=== PATIENT | male | born 2000 | race Caucasian/White ===

== ENCOUNTER → 2020-02-01 | Outpatient (REF) | payer OTHER ==
[~2020-02-01] MED LIST: AZIT-12 PO; CLIN150C14 PO; PRED20TA PO
[2020-02-01 17:12] LABS: C REACTIVE PROTEIN QUANTITATIV 4.43 MG/DL (0.00-0.30)
[2020-02-01 17:24] LABS: MONO SCRN NEGATIVE (NEGATIVE)
[2020-02-01 17:40] LABS: LYMPHOCYTES 9 % (16-44); MONOCYTES 4 % (0-5); NEUTROPHILS 87 % (28-66)
[2020-02-01 17:45] LABS: ANISOCYTOSIS 1+; HYPOCHROMASIA 1+
[2020-02-01 17:46] LABS: MICROCYTOSIS 4+
[2020-02-01 17:48] LABS: POIKILOCYTOSIS 1+
[2020-02-01 17:50] LABS: PLATELET ESTIMATE NORMAL (NORMAL)
== END ==
LOC: M LAB REF 16:46
PROVIDERS: ATTEND Nurse Practitioner Family
DX: R59.0 Localized enlarged lymph nodes (principal); D72.829 Elevated white blood cell count, unspecified; J02.9 Acute pharyngitis, unspecified

== ENCOUNTER 2020-02-02 16:33 | Emergency (ER) | payer BC, OTHER ==
[~2020-02-02] VITALS: Ht 182.9 cm; Wt 86.7 kg
[2020-02-02] MEDS ORDERED: PRED20TA PO (16:42)
[2020-02-02] MEDS ORDERED: CLIN150C14 PO (16:42)
[2020-02-02] MEDS ORDERED: AZIT-12 PO (16:42)
[2020-02-02] MEDS ORDERED: ISOVUE-370 76% 100ML VIAL (Q9967) As Ordered ONE (17:28)
[2020-02-02 17:33] LABS: BASO # 0.1 10^3/uL (0.0-0.2); BASO % 0.3 % (0.0-1.0); HEMATOCRIT 38.8 % (42.0-52.0); HEMOGLOBIN 11.7 g/dl (13.5-17.5); LYMPH # 1.6 10^3/uL (1.5-5.0); MEAN CORPUSCULAR HGB CONC 30.2 g/dl (32.0-36.5); MEAN CORPUSCULAR VOLUME 59.7 fl (80.0-96.0); MONO # 1.1 10^3/uL (0.0-0.8); MONO % 4.9 % (0.0-5.0); NEUTROPHILS # 19.4 10^3/uL (1.5-8.5); NEUTROPHILS % 87.1 % (36.0-66.0); PLATELET COUNT, AUTOMATED 366 10^3/uL (150-450); WHITE BLOOD COUNT 22.2 10^3/uL (4.0-10.0)
[2020-02-02 17:52] LABS: ERYTHROCYTE SEDIMENTATION RATE 15 mm/hr (0-15); MONO REFLEX EBV COMP NEGATIVE (NEGATIVE)
[2020-02-02 17:53] LABS: ALBUMIN 3.7 GM/DL (3.2-5.2); ALT/SGPT 15 U/L (12-78); BILIRUBIN,DIRECT 0.3 MG/DL (0.0-0.2); BILIRUBIN,TOTAL 1.2 MG/DL (0.2-1.0); TOTAL PROTEIN 8.4 GM/DL (6.4-8.2)
--- NOTE | 2020-02-02 18:06 | REPVR ---
PROCEDURE INFORMATION: Exam: CT Neck With Contrast Exam date and time: 02/02/2020 5:37 PM Age: 19 years old Clinical indication: Neck pain; Additional info: Left sided neck swelling/pain TECHNIQUE: Imaging protocol: Computed tomography images of the neck with intravenous contrast. Radiation optimization: All CT scans at this facility use at least one of these dose optimization techniques: automated exposure control; mA and/or kV adjustment per patient size (includes targeted exams where dose is matched to clinical indication); or iterative reconstruction. Contrast material: ISO 370; Contrast volume: 75 ml; Contrast route: IV; COMPARISON: No relevant prior studies available. FINDINGS: Sinuses: There is mild sinus mucosal disease, with no air-fluid level identified. Nasopharynx: Unremarkable. Oropharynx: There is inflammatory enlargement of the tonsillar pillars bilaterally, which may be slightly more prominent on the left. Hypopharynx: Unremarkable. Larynx: Unremarkable. Normal epiglottis. Retropharyngeal space: Unremarkable. Submandibular/Parotid glands: Normal. Glands are normal in size. Thyroid: Normal. No enlarged or calcified nodules. Lymph nodes: There are prominent, presumed reactive left cervical nodes, largest measuring approximately 2.6 cm in diameter. Trachea: Visualized trachea is unremarkable. Lungs: Unremarkable as visualized. Bones/joints: There is a reversal of the normal lordosis, which may be related to patient positioning, muscle spasm, or splinting. Soft tissues: There is enlargement and edematous appearance of the left sternocleidomastoid muscle, which appears hypervascular. There is edema involving the surrounding soft tissues of the left neck and. No soft tissue abscess is detected. IMPRESSION: 1. Inflammatory enlargement of the left sternocleidomastoid muscle, with surrounding soft tissue inflammation. No soft tissue abscess. 2. Reactive left cervical nodes. 3. Inflammatory enlargement of the tonsillar pillars bilaterally, perhaps slightly more prominent on the left. No peritonsillar abscess. Electronically signed by: Petra Weller On 02/02/2020 18:06:17 PM
[2020-02-02] MEDS ORDERED: CLINDAMYCIN 600 MG in IV 1 EA IV ONE (18:15)
[2020-02-02 19:05] VITALS: BP 146/84
[2020-02-05 00:06] LABS: EBV VIRAL CAPSID AG IgM <36.0 U/mL (0.0-35.9)
== END 2020-02-02 19:34 | disposition home or self-care (01) ==
LOC: M ED 16:33
DX: M79.18 Myalgia, other site (principal); R22.1 Localized swelling, mass and lump, neck; J35.1 Hypertrophy of tonsils; Z88.0 Allergy status to penicillin
CPT/HCPCS: 70491; 80047; 80076; 83605; 85025; 85652; 86140; 86308; 86664; 86665; 87040; 96365; 99284; Q9967

== ENCOUNTER 2020-02-03 11:13 | Inpatient (IN) | payer BC ==
[~2020-02-03] VITALS: Ht 185.4 cm; Wt 86.0 kg
[~2020-02-03 11:13] MED LIST changes: -CEFD1CAP8 PO
[2020-02-03] MEDS ORDERED: MOM 30ML SUSPENSION UDC PO PRN (11:30)
[2020-02-03 11:50] VITALS: BP 127/73
[2020-02-03 12:13] LABS: HEMATOCRIT 37.4 % (42.0-52.0); HEMOGLOBIN 11.3 g/dl (13.5-17.5); MEAN CORPUSCULAR HGB CONC 30.2 g/dl (32.0-36.5); MEAN CORPUSCULAR VOLUME 59.6 fl (80.0-96.0); PLATELET COUNT, AUTOMATED 320 10^3/uL (150-450); RED BLOOD COUNT 6.27 10^6/uL (4.30-6.10); WHITE BLOOD COUNT 18.1 10^3/uL (4.0-10.0)
[2020-02-03 12:37] LABS: ALBUMIN 3.5 GM/DL (3.2-5.2); ALT/SGPT 14 U/L (12-78); BILIRUBIN,TOTAL 1.3 MG/DL (0.2-1.0); BLOOD UREA NITROGEN 18 MG/DL (7-18); CALCIUM LEVEL 8.7 MG/DL (8.5-10.1); CARBON DIOXIDE LEVEL 31 MEQ/L (21-32); CHLORIDE LEVEL 104 MEQ/L (98-107); CREATININE FOR GFR 0.96 MG/DL (0.70-1.30); GLOMERULAR FILTRATION RATE > 60.0 (>60); GLUCOSE, FASTING 83 MG/DL (70-100); POTASSIUM SERUM 3.7 MEQ/L (3.5-5.1); SODIUM LEVEL 139 MEQ/L (136-145); TOTAL PROTEIN 7.7 GM/DL (6.4-8.2)
[2020-02-03 14:00] VITALS: BP 142/80
[2020-02-03] MEDS: ACETAMINOPHEN TAB 650MG DOSE (2X325MG) PO PRN ×3 (14:43→23:53)
[2020-02-03] MEDS ORDERED: CLINDAMYCIN 300 MG in IV 1 EA IV SCH ×4 (16:00)
[2020-02-03] MEDS: MEROPENEM INJ 1 GM in IV 1 EA IV SCH (17:15)
--- NOTE | 2020-02-03 17:55 | CR ---
DATE OF CONSULTATION: 02/03/2020 Asked to consult by hospitalist for evaluation of left neck abscess. HISTORY OF PRESENT ILLNESS: Irving is a pleasant 19-year-old gentleman, college student, who came back from [place] about 3 weeks ago, when he noted that he had a mild sore throat and some swelling. He did not seek any medical attention until about 5 days ago, when he noticed that his left side of the neck was much worse with swollen lymph node. He was taken to the urgent care by [facility] ([facility]), where he was treated with Zithromax and prednisone. He finished yesterday the course of Zithromax and was seen again yesterday in the emergency room, where he was given a dose of clindamycin. His white count was 22,000. He was discharged home on oral clindamycin. He received a total of three oral doses and 1 dose intravenous (IV) without any improvement. He was seen by ears, nose, and throat (ENT) today, who recommended his hospital admission. He had an incision and drainage (I and D) attempt by Dr. Brown, who was only able to get very few drops of blood. There was no purulence. Dr. Brown felt it was a phlegmon still, but he recommended hospitalization. PAST MEDICAL HISTORY: Not significant. He has no history of methicillin-resistant Staphylococcus aureus (MRSA) infections or asthma. No childhood illnesses. History of one episode of pneumonia as a child. He also has a history of Gilbert's syndrome and thalassemia minor. ALLERGIES: AMOXICILLIN with a faint rash as a child. LABORATORY DATA: White count today was 18.1, hemoglobin 11.3, hematocrit 37.4, MCV of 60, platelet 320, ESR 15. Sodium 139, potassium 3.7, chloride 104, bicarbonate 31, BUN 18, creatinine 0.96, glucose 83, lactic acid 1.7, calcium 8.7. Bilirubin 1.3, AST 10, ALT 14, alkaline phosphatase 94, total protein 7.7, albumin 3.5. CRP on January 31 was 4.43, on February 01 was 6. Serology: Mary-Mari virus (EBV), IgM, IgG, and nuclear antigen are pending. Mononucleosis screen was negative on January 31 and February 01. The patient does not have a history of mononucleosis as a child. Blood culture on February 01, two sets, were ordered and are negative so far. CT neck showed mild sinus mucosa disease with no air-fluid level. Unremarkable nasopharynx. Inflammatory enlargement tonsillar pillars bilaterally, which may be slightly more prominent on the left. Hypopharynx unremarkable. Epiglottis normal. There are prominent reactive lymph nodes, left cervical nodes, largest 2.6 cm in diameter, and large, edematous left sternocleidomastoid, which appear hypervascular edema involving the surrounding soft tissues of the left neck with no obvious abscess that can be drained. SOCIAL HISTORY: He is a college student. He has a brother. His mother is the principal of the [employer]. He does not smoke. He drinks socially. MEDICATIONS - clindamycin 300 mg IV every 8 hours, and he received one dose of 600 mg IV times one yesterday - milk of magnesia and Tylenol as needed PHYSICAL EXAMINATION: Temperature is 98.9, pulse 92, respirations 16, blood pressure 142/80, oxygen saturation 98% on room air. HEART: Normal S1, S2. No murmurs, rubs, or gallops. LUNGS: Clear. No wheezes, rales, or rhonchi. ABDOMEN: Soft, nontender. No hepatosplenomegaly. BACK: No costovertebral angle (CVA) or lumbosacral tenderness. EXTREMITIES: No clubbing, cyanosis, or edema. No calf tenderness. NECK: Significantly swollen left sternocleidomastoid with a very prominent indurated area, not fluctuant. No significant and erythema. Right neck has a few shotty lymphadenopathy. OROPHARYNX: Both tonsils are slightly enlarged and erythematous. There is no purulence over to tonsil. Left seems a little more enlarged than the right. Tongue midline with no thrush. No lesions. IMPRESSION: This is a 19-year-old gentleman, admitted with a deep neck abscess. Seems like it is involving the sternocleidomastoid. He has no history of methicillin-resistant Staphylococcus aureus (MRSA) infection in the past. He has failed treatment with 5 days of Zithromax and steroids as well as 24 hours of clindamycin. At this point, I also suggested broadening his coverage with meropenem for better anaerobic and gram-negative coverage. PLAN: 1. Obtain MRSA screen. If MRSA positive, add vancomycin IV 1 gram every 8 hours. 2. Discontinue clindamycin. 3. Start meropenem 1 gram every 8 hours. We will continue to follow with you. HIV testing and EBV serology has been done.
[2020-02-03 22:00] VITALS: BP 129/77
[2020-02-04] MEDS: MEROPENEM INJ 1 GM in IV 1 EA IV SCH ×3 (01:32→17:57)
[2020-02-04] MEDS: ACETAMINOPHEN TAB 650MG DOSE (2X325MG) PO PRN ×4 (05:14→20:44)
[2020-02-04 06:00] VITALS: BP 129/81
--- NOTE | 2020-02-04 07:19 | HPEPDOC ---
[facility] Medical History & Physical Date of Admission Feb 03, 2020 Date of Service: Feb 03, 2020 Primary Care Physician: Azalia Fine Attending Physician: SUSAN LUNA MD History and Physical CHIEF COMPLAINT: neck swelling HISTORY OF PRESENT ILLNESS: Irving Dobbs is a 19 YO M college student who presents with worsening neck swelling in setting of recent confirmed strep ph aryngitis. The patient reports that one week ago he returned from college in [place] and noticed he had a sore throat. He states he did not initially present to urgent care due to the COVID-19 crisis and his sore throat worsened over 4-5 days. He denies any fevers at that time, nor any shortness of breath. He did eventually go to Urgent Care and was prescribed Azithromycin 5 day course and 4 day Prednisone taper, which he completed. Yesterday he presented to the ED because his neck swelling was worsening. He was found to have elevated WBC at 22 and was referred to outpatient ENT. This morning, the patient was seen by Dr. Brown, who recommended hospitalization, IV antibiotics and possible ID consultation. PAST MEDICAL HISTORY: 1. Thalassemia PAST SURGICAL HISTORY: None SOCIAL HISTORY: nonsmoker, never-smoker. Drinks occasionally, denies any other drugs FAMILY HISTORY: noncontributory ALLERGIES: Please see below. REVIEW OF SYSTEMS: CONSTITUTIONAL: Feels well. No fever or chills HEENT: denies any trouble swalling, reports intermittent left-sided neck pain and swelling CARDIOVASCULAR: no palpitations RESPIRATORY: Denies any shortness of breath GENITOURINARY: No dysuria MUSCULOSKELETAL: Denies any joint/muscle pain GASTROINTESTINAL: Denies abdominal pain, no nausea/vomiting/diarrhea SKIN: No new rashes or lesions NEUROLOGICAL: No loss of sensation PSYCHIATRIC: Reports normal mood, no delusions or hallucinations ENDOCRINE: No hot/cold intolerance HEMATOLOGIC/LYMPHATIC: No easy bruising, no lumps/bumps ALLERGIC/IMMUNOLOGIC: No sinus symptoms]. HOME MEDICATIONS: Please see below. PHYSICAL EXAMINATION: VITAL SIGNS: Please see below. GENERAL APPEARANCE: Laying in bed, appears stated age, no acute distress, calm, cooperative HEENT: EOMI, PERRLA, Left neck is swollen with very large left sided cervical lymphadenopathy extending below the mastoid bone RESPIRATORY: Lungs are clear to auscultation bilaterally with no adventitious breath sounds appreciated CARDIOVASCULAR: no JVD, RRR, no murmurs/rubs/gallops ABDOMEN: Soft, nontender to palpation in all four quadrants, no masses/organomegaly EXTREMITIES: no clubbing, cyanosis or edema noted NEUROLOGICAL: No obvious focal deficits PSYCHIATRIC: normal mood/affect Skin: No rashes or ulcers. LN: No significant cervical or inguinal lymphadenopathy LABORATORY DATA: See below. IMAGING: CT NECK: IMPRESSION: 1. Inflammatory enlargement of the left sternocleidomastoid muscle, with surrounding soft tissue inflammation. No soft tissue abscess. 2. Reactive left cervical nodes. 3. Inflammatory enlargement of the tonsillar pillars bilaterally, perhaps slightly more prominent on the left. No peritonsillar abscess. MICROBIOLOGY: Please see below. ASSESSMENT: This is a 19 YO M with recent strep pharyngitis who presents with worsening neck swelling s/p Azithromycin therapy. He will be admitted for IV antibiotics and close monitoring. PLAN: 1. Cervical lymphadenopathy, left-sided: -Will start IV Clindamycin 300mg Q8H (switched to meropenem by Dr. Love) -Blood cultures pending -EBV pending -Monospot negative DISPO: Pending clinical improvement Attending Addendum: I discussed the care and management of this patient with resident in detail and agree with the plan above. Laboratory Data Labs 24H Laboratory Tests 2 02/03/20 12:02: Nucleated Red Blood Cells % (auto) 0.0, Anion Gap 4L, Glomerular Filtration Rate > 60.0, Calcium Level 8.7, Total Bilirubin 1.3H, Aspartate Amino Transf (AST/SGOT) 10, Alanine Aminotransferase (ALT/SGPT) 14, Alkaline Phosphatase 94, Total Protein 7.7, Albumin 3.5, Albumin/Globulin Ratio 0.83L CBC/BMP Laboratory Tests 02/03/20 12:02 Home Medications Scheduled Azithromycin (Azithromycin) 250 Mg Tablet, PO DAILY Clindamycin Hcl (Clindamycin HCl) 150 Mg Capsule, 150 MG PO TID Prednisone (Prednisone) 20 Mg Tablet, PO DAILY Allergies Coded Allergies: amoxicillin (Verified Allergy, Unknown, rash, 02/03/20) GME ATTESTATION GME ATTESTATION My faculty preceptor for this patient encounter was physically present during the encounter and was fully available. All aspects of the patient interview, examination, medical decision making process, and medical care plan development were reviewed and approved by the faculty preceptor. The faculty preceptor is aware and concurs with the plan as stated in the body of this note and will attest to such by his/her cosignature. ROSSANA HUTCHISON MD Feb 03, 2020 14:01 SUSAN LUNA MD Feb 05, 2020 20:28
[2020-02-04 08:34] LABS: HEMATOCRIT 35.8 % (42.0-52.0); MEAN CORPUSCULAR HEMOGLOBIN 18.1 pg (27.0-33.0); MEAN CORPUSCULAR HGB CONC 30.7 g/dl (32.0-36.5); MEAN CORPUSCULAR VOLUME 58.9 fl (80.0-96.0); PLATELET COUNT, AUTOMATED 330 10^3/uL (150-450); RED BLOOD COUNT 6.08 10^6/uL (4.30-6.10); WHITE BLOOD COUNT 15.5 10^3/uL (4.0-10.0)
[2020-02-04 09:12] LABS: HIV 1&2 SCREEN CENTAUR NEGATIVE (NEGATIVE)
[2020-02-04] MEDS ORDERED: PERCOCET 5MG/325MG TAB PO PRN ×2 (09:30)
--- NOTE | 2020-02-04 10:23 | IPNPDOC ---
Text Note Date of Service The patient was seen on 02/04/20. NOTE ENT Follow up Cervical lymphadenitis/adenopathy He is not worse symptomatically. There is no dysphagia, or airway issue Afebrile Voice not muffled Palpatiuon of mass shows it to be firm without any fluctuance or breakdown of skin It may be slightly smaller WBC down to 15.5 IMP Lymaphadenitis, possible strep but certainly no clinical surgical abscess at this point PLAN Await Blood C and S and results of needle aspirtaion Continue IV ABX VS,Fishbone, I+O VS, Fishbone, I+O Laboratory Tests 02/03/20 12:02 02/04/20 08:21 Vital Signs Date Time Temp Pulse Resp B/P (MAP) Pulse Ox O2 Delivery O2 Flow Rate FiO2 02/04/20 06:00 98.6 90 17 129/81 (97) 98 Room Air I&O- Last 24 Hours up to 6 AM 02/04/20 06:00 Intake Total 850 ml Output Total 0 ml Balance 850 ml KALYN RICH MD Feb 04, 2020 10:23
--- NOTE | 2020-02-04 11:22 | IPNPDOC ---
Date Seen The patient was seen on 02/04/20. Progress Note SUBJECTIVE: Patient reports he feels the swelling and pain is somewhat worse this morning. He feels as though it may be extending further over his clavicle. He is having trouble turning his head and sleeping. He denies any symptoms of dysphagia or shortness of breath/difficulty breathing. He is not having any trouble eating/drinking. OBJECTIVE PHYSICAL EXAMINATION: VITAL SIGNS: Please see below. GENERAL APPEARANCE: Laying in bed, appears stated age, no acute distress, calm, cooperative HEENT: EOMI, PERRLA, Left neck is swollen with very large left sided cervical lymphadenopathy extending below the mastoid bone RESPIRATORY: Lungs are clear to auscultation bilaterally with no adventitious breath sounds appreciated CARDIOVASCULAR: no JVD, RRR, no murmurs/rubs/gallops ABDOMEN: Soft, nontender to palpation in all four quadrants, no masses/organomegaly EXTREMITIES: no clubbing, cyanosis or edema noted NEUROLOGICAL: No obvious focal deficits PSYCHIATRIC: normal mood/affect Skin: No rashes or ulcers. LN: No significant cervical or inguinal lymphadenopathy LABORATORY DATA: See below. IMAGING: CT NECK: IMPRESSION: 1. Inflammatory enlargement of the left sternocleidomastoid muscle, with surrounding soft tissue inflammation. No soft tissue abscess. 2. Reactive left cervical nodes. 3. Inflammatory enlargement of the tonsillar pillars bilaterally, perhaps slightly more prominent on the left. No peritonsillar abscess. MICROBIOLOGY: Please see below. ASSESSMENT: This is a 19 YO M with recent strep pharyngitis who presents with worsening neck swelling s/p Azithromycin therapy. He will be admitted for IV antibiotics and close monitoring. PLAN: 1. Cervical lymphadenopathy, left-sided: -ID and ENT consulted. Appreciate recommendations -Continue Meropenem -MRSA screen negative, Vancomycin not indicated -Blood cultures pending -EBV pending -Monospot negative -HIV pending -R[place] started for pain, continue hot compress DISPO: Pending clinical improvement Attending Addendum: I discussed the care and management of this patient with resident in detail and agree with the plan above. VS, I&O, 24H, Fishbone Vital Signs/I&O Vital Signs Date Time Temp Pulse Resp B/P (MAP) Pulse Ox O2 Delivery O2 Flow Rate FiO2 02/04/20 06:00 98.6 90 17 129/81 (97) 98 Room Air I&O- Last 24 Hours up to 6 AM 02/04/20 06:00 Intake Total 850 ml Output Total 0 ml Balance 850 ml Laboratory Data 24H LABS Laboratory Tests 2 02/03/20 12:02: Nucleated Red Blood Cells % (auto) 0.0, Anion Gap 4L, Glomerular Filtration Rate > 60.0, Calcium Level 8.7, Total Bilirubin 1.3H, Aspartate Amino Transf (AST/SGOT) 10, Alanine Aminotransferase (ALT/SGPT) 14, Alkaline Phosphatase 94, Total Protein 7.7, Albumin 3.5, Albumin/Globulin Ratio 0.83L, HIV Antigen/Antibody Combo Qual NEGATIVE 02/03/20 17:10: Methicillin-Resist S.aureus DNA PCR NOT DETECTED 02/04/20 08:21: Nucleated Red Blood Cells % (auto) 0.0 CBC/BMP Laboratory Tests 02/03/20 12:02 02/04/20 08:21 GME ATTESTATION GME ATTESTATION My faculty preceptor for this patient encounter was physically present during the encounter and was fully available. All aspects of the patient interview, examination, medical decision making process, and medical care plan development were reviewed and approved by the faculty preceptor. The faculty preceptor is aware and concurs with the plan as stated in the body of this note and will attest to such by his/her cosignature. ROSSANA HUTCHISON MD Feb 04, 2020 11:22 SUSAN LUNA MD Feb 05, 2020 20:29
[2020-02-04 12:57] LABS: BASO # 0.1 10^3/uL (0.0-0.2); EOS # 0.2 10^3/uL (0.0-0.5); EOS % 1.7 % (0.0-3.0); HEMATOCRIT 37.7 % (42.0-52.0); HEMOGLOBIN 11.4 g/dl (13.5-17.5); LYMPH # 2.9 10^3/uL (1.5-5.0); MEAN CORPUSCULAR HGB CONC 30.2 g/dl (32.0-36.5); MEAN CORPUSCULAR VOLUME 59.4 fl (80.0-96.0); MONO # 1.2 10^3/uL (0.0-0.8); MONO % 8.8 % (0.0-5.0); NEUTROPHILS # 9.3 10^3/uL (1.5-8.5); NEUTROPHILS % 66.6 % (36.0-66.0); PLATELET COUNT, AUTOMATED 352 10^3/uL (150-450); RED BLOOD COUNT 6.35 10^6/uL (4.30-6.10); WHITE BLOOD COUNT 13.9 10^3/uL (4.0-10.0)
--- NOTE | 2020-02-04 13:56 | IPN ---
DATE: 02/04/2020 Irving still complains of the same pain in the left neck. He does not feel any improvement since yesterday. He is definitely not worse. He has no dysphagia. He has been able to eat, although with some discomfort. He has no neck stiffness. He remained afebrile. He was seen by Dr. Brown today. His note is reviewed. Dr. Brown thought the mass is slightly smaller. LABORATORY DATA: White count down to 15.5 from 18, hemoglobin 11, hematocrit 35.8, platelets 330. Sodium 139, potassium 3.7, chloride 104, bicarbonate 31, BUN 18, creatinine 0.96, glucose 83, calcium 8.7, AST 10, ALT 14. MRSA screen is negative. HIV was negative. CRP was 4.43 on 02/01/2020, Culture so far negative CT of neck reviewed. It shows inflammatory enlargement of the left sternocleidomastoid muscle with surrounding soft tissue inflammation but no abscess with reactive lymph nodes. Inflammatory enlargement of the tonsillar pillars bilaterally, more prominent on the left side. PHYSICAL EXAMINATION: Temperature is 98.6, pulse 90, respirations 17, blood pressure 129/81, oxygen saturation 98% on room air. Heart: Normal S1, S2. No murmurs, rubs or gallops. Lungs are clear. No wheezes, rales or rhonchi. Abdomen: Soft, nontender. Extremities: No edema. Neck: Significant swelling of the left sternocleidomastoid with no fluctuance. Minimal erythema. Shotty cervical adenopathy felt on the right side. Neck is not stiff. Oropharynx: Bilateral tonsillar enlargement, left seems more than right. IMPRESSION: History of group A streptococcus failed 5 days of azithromycin and prednisone, currently admitted with swelling suggestive of a phlegmon. There is no abscess currently to drain by CT. He is on IV meropenem. MRSA is negative and therefore vancomycin was not added. PLAN Continue to monitor for development of an abscess and possible need for drainage. Repeat complete blood count (CBC), C-reactive protein (CRP) in the morning. I have called his mother Denise and discussed his progress and possible home IV antibiotics, MTDD
[2020-02-04 14:00] VITALS: BP 124/76
[2020-02-04 22:00] VITALS: BP 132/79
[2020-02-05] MEDS: MEROPENEM INJ 1 GM in IV 1 EA IV SCH ×3 (01:42→18:03)
[2020-02-05] MEDS: ACETAMINOPHEN TAB 650MG DOSE (2X325MG) PO PRN ×3 (01:45→16:31)
[2020-02-05 06:00] VITALS: BP 125/67
[2020-02-05 06:35] LABS: HEMATOCRIT 36.9 % (42.0-52.0); HEMOGLOBIN 11.3 g/dl (13.5-17.5); MEAN CORPUSCULAR HGB CONC 30.6 g/dl (32.0-36.5); MEAN CORPUSCULAR VOLUME 58.8 fl (80.0-96.0); PLATELET COUNT, AUTOMATED 349 10^3/uL (150-450); RED BLOOD COUNT 6.28 10^6/uL (4.30-6.10); WHITE BLOOD COUNT 9.9 10^3/uL (4.0-10.0)
[2020-02-05 06:51] LABS: BLOOD UREA NITROGEN 16 MG/DL (7-18); CALCIUM LEVEL 9.1 MG/DL (8.5-10.1); CARBON DIOXIDE LEVEL 30 MEQ/L (21-32); CHLORIDE LEVEL 102 MEQ/L (98-107); GLOMERULAR FILTRATION RATE > 60.0 (>60); GLUCOSE, FASTING 86 MG/DL (70-100); POTASSIUM SERUM 3.9 MEQ/L (3.5-5.1); SODIUM LEVEL 136 MEQ/L (136-145)
--- NOTE | 2020-02-05 12:05 | IPNPDOC ---
Date Seen The patient was seen on 02/05/20. Progress Note SUBJECTIVE: Patient reports he does not notice any improvement in his swelling this morning. He states that he still has intermittent pain in his neck. He denies any trouble swallowing or breathing. Otherwise, no changes overnight. OBJECTIVE PHYSICAL EXAMINATION: VITAL SIGNS: Please see below. GENERAL APPEARANCE: Laying in bed, appears stated age, no acute distress, calm, cooperative HEENT: EOMI, PERRLA, Left neck swelling much improved from yesterday RESPIRATORY: Lungs are clear to auscultation bilaterally with no adventitious breath sounds appreciated CARDIOVASCULAR: no JVD, RRR, no murmurs/rubs/gallops ABDOMEN: Soft, nontender to palpation in all four quadrants, no masses/organomegaly EXTREMITIES: no clubbing, cyanosis or edema noted NEUROLOGICAL: No obvious focal deficits PSYCHIATRIC: normal mood/affect Skin: No rashes or ulcers. LN: No significant cervical or inguinal lymphadenopathy LABORATORY DATA: See below. IMAGING: CT NECK: IMPRESSION: 1. Inflammatory enlargement of the left sternocleidomastoid muscle, with surrounding soft tissue inflammation. No soft tissue abscess. 2. Reactive left cervical nodes. 3. Inflammatory enlargement of the tonsillar pillars bilaterally, perhaps slightly more prominent on the left. No peritonsillar abscess. MICROBIOLOGY: Please see below. ASSESSMENT: This is a 19 YO M with recent strep pharyngitis who presents with worsening neck swelling s/p Azithromycin therapy. He is currently on Meropenemand thus far cultures are negative. PLAN: 1. Cervical lymphadenopathy, left-sided: -ID and ENT consulted. Appreciate recommendations -Continue Meropenem -MRSA screen negative, Vancomycin not indicated -Blood cultures negative after 48h -EBV IgG found to be elevated at 255 and EBV Antigen elevated at 386 -Monospot negative -HIV negative -[place] started for pain, continue hot compress DISPO: Pending clinical improvement Attending Addendum: I discussed the care and management of this patient with resident in detail and agree with the plan above. VS, I&O, 24H, Fishbone Vital Signs/I&O Vital Signs Date Time Temp Pulse Resp B/P (MAP) Pulse Ox O2 Delivery O2 Flow Rate FiO2 02/05/20 06:00 97.9 75 16 125/67 (86) 96 Room Air I&O- Last 24 Hours up to 6 AM 02/05/20 05:59 Intake Total 1220 ml Output Total 0 ml Balance 1220 ml Laboratory Data 24H LABS Laboratory Tests 2 02/04/20 12:40: Immature Granulocyte % (Auto) 0.9, Neutrophils (%) (Auto) 66.6H, Lymphocytes (%) (Auto) 21.0L, Monocytes (%) (Auto) 8.8H, Eosinophils (%) (Auto) 1.7, Basophils (%) (Auto) 1.0, Neutrophils # (Auto) 9.3H, Lymphocytes # (Auto) 2.9, Monocytes # (Auto) 1.2H, Eosinophils # (Auto) 0.2, Basophils # (Auto) 0.1, Nucleated Red Blood Cells % (auto) 0.0, C-Reactive Protein, Quantitative 11.30H 02/05/20 06:13: Nucleated Red Blood Cells % (auto) 0.0, Anion Gap 4L, Glomerular Filtration Rate > 60.0, Calcium Level 9.1 CBC/BMP Laboratory Tests 02/04/20 12:40 02/05/20 06:13 GME ATTESTATION GME ATTESTATION My faculty preceptor for this patient encounter was physically present during the encounter and was fully available. All aspects of the patient interview, examination, medical decision making process, and medical care plan development were reviewed and approved by the faculty preceptor. The faculty preceptor is aware and concurs with the plan as stated in the body of this note and will attest to such by his/her cosignature. ROSSANA HUTCHISON MD Feb 05, 2020 12:05 SUSAN LUNA MD Feb 05, 2020 20:30
[2020-02-05] MEDS ORDERED: ISOVUE-370 76% 100ML VIAL (Q9967) As Ordered ONE (13:44)
--- NOTE | 2020-02-05 13:46 | CR ---
DATE OF CONSULTATION: 02/05/2020 Mr. Dobbs continues to be on IV antibiotics for lymphadenitis, cellulitis of the neck. Clinically, he says he is feeling no worse, but certainly no better. He thinks the swelling has gone down some. He is having no dysphagia or odynophagia. He is afebrile. Examination of the neck showed the inflammatory mass to be slightly swollen, maybe by about 25% in original. It is still warm to the touch. It is not fluctuant. It is firm. I recommended that he have a new CT scan within 24 hours to see if there is any change deep in the neck in terms of formation of an abscess. In the meantime, he should remain on the IV antibiotics. I have also encouraged him to get up and walk around and do leg exercises so that he has no issues with venous stasis in his legs.
[2020-02-05 14:00] VITALS: BP 135/68
--- NOTE | 2020-02-05 14:42 | REP ---
CT SOFT TISSUES NECK: CT soft tissues neck performed following the intravenous administration of 75 mL Isovue 370. Sagittal and coronal reconstruction images are performed. Comparison is made with a prior study of 02/02/2020. Once again there is diffuse enlargement of the left sternocleidomastoid muscle with ill-defined margins and surrounding edematous change in the soft tissues compatible with cellulitis. Just deep to the sternocleidomastoid muscle at the level of the angle of the mandible there is small area of ill-defined fluid density measuring 1.4 x 1.0 cm. This could represent early abscess formation. Alternatively this could represent focal phlegmonous change. Once again there are several mildly enlarged left cervical lymph nodes in this region. There is moderate enlargement of the left palatine tonsil. There is mild enlargement of the right palatine tonsil. No significantly enlarged lymph nodes are seen in the right neck. Epiglottis is unremarkable. Parotid glands, submandibular glands and thyroid are all unremarkable. Airway is patent. IMPRESSION: Findings compatible with cellulitis in the left neck soft tissues. There is again diffuse enlargement and inflammation of the left sternocleidomastoid muscle. Several mildly enlarged cervical lymph nodes are present. Focal oval low density in the soft tissues just deep the sternocleidomastoid muscle at the level of the angle of the mandible may represent focal phlegmonous change or early abscess formation. This measures 14 x 10 mm. Moderate enlargement of the left palatine tonsil with mild enlargement of the right palatine tonsil. Electronically Signed by Raul Townsend MD 02/05/2020 05:33 P
[2020-02-05 22:00] VITALS: BP 124/73
[2020-02-06] MEDS: MEROPENEM INJ 1 GM in IV 1 EA IV SCH ×3 (01:40→17:25)
[2020-02-06] MEDS: ACETAMINOPHEN TAB 650MG DOSE (2X325MG) PO PRN ×3 (01:41→17:25)
[2020-02-06 06:00] VITALS: BP 121/74
--- NOTE | 2020-02-06 11:43 | IPNPDOC ---
Text Note Date of Service The patient was seen on 02/06/20. NOTE Day 3 IV ABX He appears to be clinically improved His WBC is down to 9.3 with rise in Monocytes and his EBV titers are elevated CT reviewed, Still no surgical benchmarks reached. 1.4 cm area of attenuation too diffiuclt to label abscess or localize. I am wondering if this is not a Monomuclueosis picture with this florid lymphadenopathy and inflammatory process. Would seriously discuss added steroids to his regimen. Decadron IV would be suggested. Please run this by Dr. Love. Thanks VS,[place], I+O VS, [place], I+O Vital Signs Date Time Temp Pulse Resp B/P (MAP) Pulse Ox O2 Delivery O2 Flow Rate FiO2 02/06/20 06:00 98.0 74 20 121/74 (90) 97 Room Air I&O- Last 24 Hours up to 6 AM 02/06/20 06:00 Intake Total 1560 ml Output Total 0 ml Balance 1560 ml KALYN RICH MD Feb 06, 2020 11:43
[2020-02-06 14:00] VITALS: BP 122/73
--- NOTE | 2020-02-06 15:10 | IPNPDOC ---
Date Seen The patient was seen on 02/06/20. Progress Note SUBJECTIVE: 19-year-old male with no significant past medical history, was admitted for suspected left neck abscess following strep throat infection. Pat ient has been treated with broad-spectrum IV antibiotics, cultures pending, having significant clinical improvement every day. Patient reports improvement in swelling and discomfort, denies any issues with breathing, swallowing or managing his oral secretions. He denies any chest pain, nausea, vomiting, abdominal pain or diarrhea. 10 point review of systems negative except for above PHYSICAL EXAMINATION: VITAL SIGNS: Please see below. GENERAL: No distress HEENT: Normocephalic, atraumatic, moist mucous membranes NECK: Large swelling of left neck over sternocleidomastoid muscle, tenderness to palpation improving, size is slightly decreased since admission CARDIOVASCULAR EXAMINATION: S1, S2, no murmurs RESPIRATORY EXAMINATION: Clear to auscultation, no wheezing ABDOMINAL EXAMINATION: Soft, nontender, nondistended, positive bowel sounds EXTREMITIES: Range of motion intact SKIN: No rash NEUROLOGICAL EXAMINATION: Alert and oriented 3, no focal deficits PSYCHIATRIC EXAMINATION: Calm and cooperative LABORATORY DATA, IMAGING STUDIES, MICROBIOLOGY: Please see below. ASSESSMENT AND PLAN: 19-year-old male with nausea. Past medical history, was admitted for left neck swelling after strep throat infection PROBLEMS: 1. Left neck swelling: Questionable abscess after strep throat infection, initial CT scan without a discrete abscess, repeat CAT scan yesterday showed persistent swelling of sternocleidomastoid muscle with possibly a developing abscess. Patient making slow clinical improvement, continue broad-spectrum antib iotics, cultures pending, infectious disease following, pain control. VS, I&O, 24H, Fishbone Vital Signs/I&O Vital Signs Date Time Temp Pulse Resp B/P (MAP) Pulse Ox O2 Delivery O2 Flow Rate FiO2 02/06/20 14:00 98.5 82 18 122/73 (89) 96 Room Air I&O- Last 24 Hours up to 6 AM 02/06/20 06:00 Intake Total 1560 ml Output Total 0 ml Balance 1560 ml SUSAN LUNA MD Feb 06, 2020 15:10
[2020-02-06 22:00] VITALS: BP 120/72
[2020-02-07] MEDS: MEROPENEM INJ 1 GM in IV 1 EA IV SCH ×2 (01:59→10:20)
[2020-02-07] MEDS: ACETAMINOPHEN TAB 650MG DOSE (2X325MG) PO PRN (02:09)
[2020-02-07 06:00] VITALS: BP 120/70
[2020-02-07 06:17] LABS: HEMATOCRIT 37.5 % (42.0-52.0); HEMOGLOBIN 11.7 g/dl (13.5-17.5); MEAN CORPUSCULAR HEMOGLOBIN 18.4 pg (27.0-33.0); MEAN CORPUSCULAR HGB CONC 31.2 g/dl (32.0-36.5); MEAN CORPUSCULAR VOLUME 59.1 fl (80.0-96.0); PLATELET COUNT, AUTOMATED 441 10^3/uL (150-450); RED BLOOD COUNT 6.35 10^6/uL (4.30-6.10); WHITE BLOOD COUNT 7.8 10^3/uL (4.0-10.0)
--- NOTE | 2020-02-07 08:30 | IPNPDOC ---
Text Note Date of Service The patient was seen on 02/07/20. NOTE ENT Continues to show signs of improvment, can now turn his neck and is having less pain He is afebrile Exam shows the size of the mass to be 1/2 of its original. It is firm, less hot, and less tender No fluctuance or skin breakdown is noted CT from yesterday shows inflammatory chnages primarily WBC this AM down to 7.3 I suspect he will not need an I and D if he continues at this rate. Still wonder about steroids to enhance the reduction of inflammation. Will wait for Dr. Love's recommendation on length of IV abx before swtiching to PO but I suspect he is close. VS,Drebone, I+O VS, Drebone, I+O Laboratory Tests 02/07/20 05:23 Vital Signs Date Time Temp Pulse Resp B/P (MAP) Pulse Ox O2 Delivery O2 Flow Rate FiO2 02/07/20 06:00 97.5 83 17 120/70 (87) 97 Room Air I&O- Last 24 Hours up to 6 AM 02/07/20 05:59 Intake Total 1330 ml Output Total 0 ml Balance 1330 ml KALYN RICH MD Feb 07, 2020 08:30
[2020-02-07 14:00] VITALS: BP 118/74
[2020-02-07] MEDS ORDERED: CEFD1CAP8 PO (15:41)
--- NOTE | 2020-02-07 16:40 | IPN ---
DATE: 02/07/2020 INFECTIOUS DISEASE PROGRESS NOTE Irving wants to go home. He is feeling much better. His neck swelling has at least 50% decreased. He has had no fever or chills. No nausea, vomiting or diarrhea. No side effects from medication and no rashes from meropenem. I called his mother, Denise Dobbs, and discussed the case with her. He has been afebrile throughout this admission. Temperature is 98.6, pulse 88, respirations 16, blood pressure 118/74, oxygen saturation (O2 sat) 96% on room air. Heart: Normal S1, S2. No murmurs. Lungs are clear. Abdomen: Soft, nontender. No hepatosplenomegaly. Left neck sternocleidomastoid swelling has markedly decreased, minimal tenderness. The patient is able to move his neck in both directions. LABORATORY DATA: White count 7.8, hemoglobin 11.7, hematocrit 37.5, platelets 441. Sodium 136, potassium 3.9, chloride 102, bicarbonate 30, BUN 16, creatinine 0.8, glucose 86, calcium 9.1, CRP 2.36 down from 11.3. ASO 1450 with normal being less than 214. MRSA screen negative. HIV negative. 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 [place] screen negative. Neck culture was positive for Staphylococcus (staph) epidermidis, only penicillin resistant. IMPRESSION: 1. Left neck sternocleidomastoid deep abscess, on IV meropenem, doing much better. Currently he is day #4. 2. History of amoxicillin allergy, tolerating meropenem. 3. History of group A strep tonsillitis with elevated ASO titer, most likely the reason for his deep neck abscess. Sore throat has improved. 4. EBV serology consistent with old infectious mononucleosis and not the reason for this hospitalization. PLAN: The patient could be discharged home on oral cefdinir 300 mg by mouth twice a day for 14 days. The patient could follow up with Ears, Nose and Throat (ENT) or infectious disease in a couple weeks. Case discussed with Dr. Lynn, who has agreed on discharging the patient and mother is excited to be picking him up today.
== END 2020-02-07 17:25 | disposition home or self-care (01) | DRG 344 ==
LOC: M MSPAV 11:50
PROVIDERS: ADMIT Internal Medicine; ATTEND Internal Medicine
DX: M60.08 Infective myositis, other site (principal); L03.221 Cellulitis of neck; Z88.0 Allergy status to penicillin

== ENCOUNTER → 2020-02-03 | Outpatient (REF) | payer BC ==
[~2020-02-03] MED LIST changes: +CEFD1CAP8 PO
== END ==
LOC: M LAB REF 13:48
PROVIDERS: ATTEND Specialist
DX: L04.0 Acute lymphadenitis of face, head and neck (principal)

== ENCOUNTER → 2020-11-22 | Outpatient (REF) | payer BC ==
[~2020-11-22] MED LIST changes: +CEFD1CAP8 PO; -CLIN150C14 PO; +CLIN150C15 PO
== END ==
LOC: M WUC 12:06
PROVIDERS: ATTEND Physician Assistant
DX: J02.9 Acute pharyngitis, unspecified (principal)

== ENCOUNTER → 2024-04-16 | Outpatient (CLI) | payer BC, OTHER ==
[~2024-04-16] MED LIST changes: -CEFD1CAP8 PO; +CEFD1CAP9 PO; -CLIN150C15 PO; +CLIN150C17 PO
[2024-04-16 12:39] LABS: HEMATOCRIT 42.2 % (42.0-52.0)
[2024-04-16 12:46] LABS: VITAMIN B12 LEVEL 501 PG/ML (211-911)
[2024-04-16 12:48] LABS: ALBUMIN 4.1 G/DL (3.2-5.2); ALKALINE PHOSPHATASE 77 U/L (46-116); ALT/SGPT 20 U/L (7.0-40); AST/SGOT 11 U/L (<34); BILIRUBIN,DIRECT 0.8 MG/DL (<0.4); BILIRUBIN,TOTAL 2.2 MG/DL (0.3-1.2); BLOOD UREA NITROGEN 23 MG/DL (9-23); CALCIUM LEVEL 9.1 MG/DL (8.5-10.1); CARBON DIOXIDE LEVEL 31 MMOL/L (20-31); CHLORIDE LEVEL 103 MMOL/L (98-107); FREE T4 1.21 NG/DL (0.89-1.76); GLOMERULAR FILTRATION RATE > 60.0 (>60); GLUCOSE, FASTING 92 MG/DL (60-100); POTASSIUM SERUM 4.5 MMOL/L (3.5-5.1); SODIUM LEVEL 139 MMOL/L (136-145); THYROID STIMULATING HORMONE 1.146 uIU/ML (0.55-4.78); TOTAL PROTEIN 6.5 G/DL (5.7-8.2)
[2024-04-16 12:49] LABS: FERRITIN 113.8 NG/ML (10.5-307.3)
[2024-04-16 13:19] LABS: BASO # 0.1 10^3/uL (0.0-0.2); BASO % 1.1 % (0.0-1.0); EOS # 0.3 10^3/uL (0.0-0.5); EOS % 3.7 % (0.0-3.0); HEMATOCRIT 42.5 % (42.0-52.0); HEMOGLOBIN 12.8 g/dl (13.5-17.5); LYMPH # 2.2 10^3/uL (1.5-5.0); LYMPH % 27.1 % (24.0-44.0); MEAN CORPUSCULAR HEMOGLOBIN 18.1 pg (27.0-33.0); MEAN CORPUSCULAR HGB CONC 30.1 g/dl (32.0-36.5); MEAN CORPUSCULAR VOLUME 60.1 fl (80.0-96.0); MONO # 0.8 10^3/uL (0.0-0.8); MONO % 9.2 % (2.0-8.0); NEUTROPHILS # 4.8 10^3/uL (1.5-8.5); NEUTROPHILS % 58.4 % (36.0-66.0); PLATELET COUNT, AUTOMATED 219 10^3/uL (150-450); RED BLOOD COUNT 7.07 10^6/uL (4.30-6.10); WHITE BLOOD COUNT 8.2 10^3/uL (4.0-10.0)
[2024-04-19 12:47] LABS: HAPTOGLOBIN 60 mg/dL (43-212)
[2024-04-20 14:27] LABS: ANISOCYTOSIS 2+; BURR CELLS 1+; MICROCYTOSIS 3+; POIKILOCYTOSIS 1+
[2024-04-20 14:28] LABS: SCHISTOCYTES 1+; TEAR DROP CELLS 1+
[2024-04-20 14:29] LABS: HYPOCHROMASIA 1+
[2024-04-20 14:46] LABS: PLATELET ESTIMATE NORMAL (NORMAL)
== END ==
LOC: M PLALAB 07:09
PROVIDERS: ATTEND Family Medicine
DX: E83.19 Other disorders of iron metabolism (principal); D50.9 Iron deficiency anemia, unspecified; E80.6 Other disorders of bilirubin metabolism; H81.01 Meniere's disease, right ear

== ENCOUNTER → 2024-04-20 | Outpatient (CLI) | payer BC | LOC: M RAD 07:00 | PROVIDERS: ATTEND Family Medicine | DX: E80.6 Other disorders of bilirubin metabolism (principal); N13.30 Unspecified hydronephrosis; R16.1 Splenomegaly, not elsewhere classified; N28.81 Hypertrophy of kidney ==

== ENCOUNTER → 2024-05-11 | Outpatient (CLI) | payer BC ==
[~2024-05-11] MED LIST changes: +ISOVUE-370 76% 100ML VIAL ONE
== END ==
LOC: M PLAIMG 10:48
PROVIDERS: ATTEND Family Medicine
DX: N13.30 Unspecified hydronephrosis (principal)
CPT/HCPCS: 74178; Q9967

== ENCOUNTER → 2024-06-03 | Outpatient (REF) | payer BC ==
[~2024-06-03] MED LIST changes: -ISOVUE-370 76% 100ML VIAL ONE
== END ==
LOC: M SFHCPLAZ 10:25
PROVIDERS: ATTEND Family Medicine
DX: D56.3 Thalassemia minor (principal); E80.4 Gilbert syndrome; D50.9 Iron deficiency anemia, unspecified; E55.9 Vitamin D deficiency, unspecified

== ENCOUNTER → 2024-09-06 | Outpatient (CLI) | payer BC ==
[2024-09-06 14:20] LABS: BASO % 0.5 % (0.0-1.0); EOS # 0.4 10^3/uL (0.0-0.5); EOS % 4.3 % (0.0-3.0); HEMATOCRIT 38.1 % (42.0-52.0); HEMOGLOBIN 11.8 g/dl (13.5-17.5); LYMPH # 1.7 10^3/uL (1.5-5.0); LYMPH % 20.9 % (24.0-44.0); MEAN CORPUSCULAR HEMOGLOBIN 18.5 pg (27.0-33.0); MEAN CORPUSCULAR VOLUME 59.7 fl (80.0-96.0); MONO # 0.8 10^3/uL (0.0-0.8); MONO % 9.5 % (2.0-8.0); NEUTROPHILS # 5.2 10^3/uL (1.5-8.5); NEUTROPHILS % 64.3 % (36.0-66.0); PLATELET COUNT, AUTOMATED 178 10^3/uL (150-450); RED BLOOD COUNT 6.38 10^6/uL (4.30-6.10); WHITE BLOOD COUNT 8.1 10^3/uL (4.0-10.0)
[2024-09-06 14:48] LABS: IRON (FE) 82 UG/DL (65-175); PERCENT SATURATION 30.9 % (19.7-50.0); TOTAL IRON BINDING CAPACITY 265 UG/DL (250-425)
[2024-09-06 14:49] LABS: ALBUMIN 3.7 G/DL (3.2-5.2); ALKALINE PHOSPHATASE 88 U/L (40-129); ALT/SGPT 35 U/L (7.0-40); AST/SGOT 11 U/L (<34); BILIRUBIN,TOTAL 3.1 MG/DL (0.3-1.2); BLOOD UREA NITROGEN 20 MG/DL (9-23); CALCIUM LEVEL 9.1 MG/DL (8.5-10.1); CARBON DIOXIDE LEVEL 29 MMOL/L (20-31); CHLORIDE LEVEL 107 MMOL/L (98-107); CHOLESTEROL LEVEL 112 MG/DL (<200); CHOLESTEROL RISK RATIO 2.15 (<5); CREATININE FOR GFR 0.93 MG/DL (0.70-1.30); GLOMERULAR FILTRATION RATE > 60.0 (>60); GLUCOSE, FASTING 78 MG/DL (60-100); HDL CHOLESTEROL 51.9 MG/DL (>40); LDL CHOLESTEROL 48.7 MG/DL (<100); NON-HDL-C 60.1 MG/DL; POTASSIUM SERUM 4.6 MMOL/L (3.5-5.1); PTH INTACT 47.3 PG/ML (18.5-88.0); SODIUM LEVEL 141 MMOL/L (136-145); TOTAL PROTEIN 6.4 G/DL (5.7-8.2); TRIGLYCERIDES LEVEL 57 MG/DL (<150)
[2024-09-06 14:50] LABS: FERRITIN 120.4 NG/ML (10.5-307.3)
== END ==
LOC: M PLALAB 11:20
PROVIDERS: ATTEND Family Medicine
DX: E83.110 Hereditary hemochromatosis (principal); E80.4 Gilbert syndrome; D56.3 Thalassemia minor